=== PATIENT | male | born 1950 | race Caucasian/White ===

== ENCOUNTER 2022-02-12 17:27 | Emergency (ER) | payer MEDICARE, BC ==
[~2022-02-12] VITALS: Ht 182.9 cm; Wt 94.1 kg
[2022-02-12 18:57] LABS: BASOPHILS % (AUTO) 0.5 % (0-1); EOSINOPHILS # (AUTO) 0.2 X10'3 (0-0.9); EOSINOPHILS % (AUTO) 3.4 % (0-6); HEMATOCRIT 29.8 % (42.0-52.0); HEMOGLOBIN 10.3 g/dl (14.0-17.9); LYMPHOCYTES # (AUTO) 0.6 X10'3 (1.1-4.8); LYMPHOCYTES % (AUTO) 10.3 % (21-51); MEAN CORPUSCULAR HEMOGLOBIN 30.5 PG (27.0-31.0); MEAN CORPUSCULAR HGB CONC 34.7 g/dL (33.0-36.5); MEAN CORPUSCULAR VOLUME 88.1 FL (78-98); MEAN PLATELET VOLUME 7.2 FL (7.4-10.4); MONOCYTES # (AUTO) 0.6 X10'3 (0-0.9); MONOCYTES % (AUTO) 10.7 % (2-12); NEUTROPHILS # (AUTO) 4.4 X10'3 (1.8-7.7); NEUTROPHILS % (AUTO) 75.1 % (42-75); PLATELET COUNT 245 X10'3 (140-440); RED BLOOD COUNT 3.39 X10'6 (4.70-6.10); RED CELL DISTRIBUTION WIDTH 14.4 % (11.5-14.5); WHITE BLOOD COUNT 5.8 X10'3 (4.5-11.0)
[2022-02-12 19:21] LABS: ALANINE AMINOTRANSFERASE 59 U/L (12-78); ALBUMIN 3.3 G/DL (3.4-5.0); ALBUMIN/GLOBULIN RATIO 0.8 (1.1-1.5); ALKALINE PHOSPHATASE 185 IU/L (46-116); ANION GAP 13 (8-16); ASPARTATE AMINO TRANSFERASE 67 U/L (10-37); BILIRUBIN,TOTAL 0.2 MG/DL (0.1-1.0); BLOOD UREA NITROGEN 25 MG/DL (7-18); BUN/CREATININE RATIO 8.3 (5.4-32.0); CALCIUM 10.6 MG/DL (8.5-10.1); CHLORIDE 98 MMOL/L (99-107); CREATININE 3.03 MG/DL (0.60-1.10); GLUCOSE 82 MG/DL (70-104); POTASSIUM 3.5 MMOL/L (3.5-5.1); SODIUM 133 MMOL/L (135-145); TOTAL CARBON DIOXIDE 22.5 MMOL/L (24-32); TOTAL PROTEIN 7.4 G/DL (6.4-8.2); eGFR 21 ML/MIN
[2022-02-12] MEDS ORDERED: normal saline 1000ML IV soln IVB ONE ×2 (19:25→21:35)
[2022-02-12 20:19] LABS: CLARITY,URINE CLEAR (Clear); GLUCOSE, URINE NEGATIVE (Neg); KETONES,URINE NEGATIVE (Neg); LEUKOCYTE ESTERASE ,URINE NEGATIVE (Neg); NITRITES, URINE NEGATIVE (Neg); OCCULT BLOOD,URINE NEGATIVE (Neg); PH,URINE 5.5 (4.8-8.0); PROTEIN,URINE NEGATIVE (Neg); UROBILINOGEN,URINE 0.2 E.U/dL (0.2-1.0)
[2022-02-12 20:24] LABS: COLOR,URINE STRAW (Yellow); UA COLLECTION TYPE CLN CATCH MIDSTREAM
[2022-02-12] MEDS ORDERED: allopurinol 300 MG tablet PO SCH (21:35)
[2022-02-12 22:28] VITALS: BP 123/67
== END 2022-02-12 22:40 | disposition home or self-care (01) ==
LOC: ER 17:27
DX: N18.9 Chronic kidney disease, unspecified (principal); E79.0 Hyperuricemia without signs of inflammatory arthritis and tophaceous disease; Z85.72 Personal history of non-Hodgkin lymphomas
CPT/HCPCS: 36415; 80053; 81003; 84550; 85025; 96360; 99283; J7030; 93005

== ENCOUNTER 2022-02-14 06:44 | Day surgery (SDC) | payer MEDICARE, BC ==
[~2022-02-14] VITALS: Ht 182.9 cm; Wt 94.0 kg
[2022-02-14] VITALS (7 sets, daily range): BP systolic 119–146; BP diastolic 64–87
[2022-02-14] MEDS ORDERED: normal saline 1000ml 1,000 ML IV PRN (07:10)
[2022-02-14] MEDS ORDERED: GEMF600T89 PO (08:02)
[2022-02-14 08:03] LABS: BASOPHILS % (AUTO) 0.4 % (0-1); EOSINOPHILS # (AUTO) 0.1 X10'3 (0-0.9); EOSINOPHILS % (AUTO) 3.6 % (0-6); HEMATOCRIT 27.2 % (42.0-52.0); HEMOGLOBIN 9.2 g/dl (14.0-17.9); LYMPHOCYTES # (AUTO) 0.4 X10'3 (1.1-4.8); MEAN CORPUSCULAR HEMOGLOBIN 30.1 PG (27.0-31.0); MEAN CORPUSCULAR HGB CONC 33.7 g/dL (33.0-36.5); MEAN CORPUSCULAR VOLUME 89.3 FL (78-98); MONOCYTES # (AUTO) 0.5 X10'3 (0-0.9); MONOCYTES % (AUTO) 12.1 % (2-12); NEUTROPHILS # (AUTO) 2.9 X10'3 (1.8-7.7); NEUTROPHILS % (AUTO) 73.9 % (42-75); PLATELET COUNT 230 X10'3 (140-440); RED BLOOD COUNT 3.05 X10'6 (4.70-6.10); RED CELL DISTRIBUTION WIDTH 14.5 % (11.5-14.5); WHITE BLOOD COUNT 3.9 X10'3 (4.5-11.0)
[2022-02-14] MEDS ORDERED: LEVO100T9 PO (08:03)
[2022-02-14] MEDS ORDERED: CITA20TA28 PO (08:03)
[2022-02-14] MEDS ORDERED: SIMV-42 PO (08:03)
[2022-02-14] MEDS ORDERED: OLME20TA23 PO (08:05)
[2022-02-14] MEDS ORDERED: ALLO100T PO (08:05)
[2022-02-14] MEDS ORDERED: FLO0.4C PO (08:05)
[2022-02-14] MEDS ORDERED: ATI1T PO (08:05)
[2022-02-14 08:11] LABS: APTT 30 SECONDS (22-32)
[2022-02-14] MEDS ORDERED: levoFLOXACIN-Levaquin 500mg/D5 100 ML IV ONE (08:15)
[2022-02-14 08:25] LABS: ALBUMIN 3.1 G/DL (3.4-5.0); ANION GAP 14 (8-16); BLOOD UREA NITROGEN 38 MG/DL (7-18); BUN/CREATININE RATIO 11.6 (5.4-32.0); CALCIUM 9.8 MG/DL (8.5-10.1); CHLORIDE 106 MMOL/L (99-107); CREATININE 3.29 MG/DL (0.60-1.10); GLUCOSE 75 MG/DL (70-104); POTASSIUM 4.3 MMOL/L (3.5-5.1); SODIUM 139 MMOL/L (135-145); TOTAL CARBON DIOXIDE 19.2 MMOL/L (24-32); eGFR 19 ML/MIN
[2022-02-14] MEDS ORDERED: LIDOcaine 1%/PF 5ML 10 MG/ML VIAL ONE (09:26)
[2022-02-14] MEDS ORDERED: fentaNYL/PF 50MCG/1 ML 2ML syringe ONE ×2 (09:26→10:25)
[2022-02-14] MEDS ORDERED: iohexol 350MG/ML 100ml bottle IV ONE (09:26)
[2022-02-14] MEDS ORDERED: midazolam 1 mg/ML 2ml injection ONE ×2 (09:26→10:25)
[2022-02-14] MEDS ORDERED: diphenhydrAMINE 50 mg/ml inj ONE (10:06)
--- NOTE | 2022-02-14 13:00 | NUR ---
Dr. Quintero at bedside states pt can go home.
== END 2022-02-14 13:00 | disposition home or self-care (01) ==
LOC: SSTAY O 06:44
PROVIDERS: ATTEND Radiology Diagnostic Radiology
DX: N13.1 Hydronephrosis with ureteral stricture, not elsewhere classified (principal); Z79.01 Long term (current) use of anticoagulants; I10 Essential (primary) hypertension; E78.00 Pure hypercholesterolemia, unspecified; E03.9 Hypothyroidism, unspecified; Z79.899 Other long term (current) drug therapy; Z98.890 Other specified postprocedural states
CPT/HCPCS: 36415; 50432; 80048; 85025; 85610; 85730; 99152; 99153; C1729; C1769; J1200; J2250; J3010; J3490; J7030; Q9967; 76942; A4421; A4620; A6258

== ENCOUNTER 2022-03-08 14:01 | Day surgery (SDC) | payer MEDICARE, BC ==
[~2022-03-08] VITALS: Ht 182.9 cm; Wt 90.2 kg
[~2022-03-08 14:01] MED LIST: ALLO100T PO; ATI1T PO; CITA20TA28 PO; FLO0.4C PO; GEMF600T89 PO; LEVO100T9 PO; OLME20TA23 PO; SIMV-42 PO
[2022-03-08] MEDS ORDERED: levoFLOXACIN-Levaquin 500mg/D5 100 ML IV ONE (14:20)
[2022-03-08] MEDS ORDERED: normal saline 1000ml 1,000 ML IV PRN (14:20)
[2022-03-08 14:30] VITALS: BP 140/82
[2022-03-08] MEDS ORDERED: [UNRECOGNIZED DRUG - CODE] (14:40)
[2022-03-08 14:43] LABS: BASOPHILS % (AUTO) 0.3 % (0-1); EOSINOPHILS % (AUTO) 0.3 % (0-6); HEMATOCRIT 25.7 % (42.0-52.0); HEMOGLOBIN 8.8 g/dl (14.0-17.9); LYMPHOCYTES # (AUTO) 0.4 X10'3 (1.1-4.8); LYMPHOCYTES % (AUTO) 4.8 % (21-51); MEAN CORPUSCULAR HEMOGLOBIN 29.6 PG (27.0-31.0); MEAN CORPUSCULAR HGB CONC 34.1 g/dL (33.0-36.5); MEAN CORPUSCULAR VOLUME 86.8 FL (78-98); MEAN PLATELET VOLUME 7.2 FL (7.4-10.4); MONOCYTES # (AUTO) 0.7 X10'3 (0-0.9); MONOCYTES % (AUTO) 7.5 % (2-12); NEUTROPHILS # (AUTO) 7.6 X10'3 (1.8-7.7); NEUTROPHILS % (AUTO) 87.1 % (42-75); PLATELET COUNT 353 X10'3 (140-440); RED BLOOD COUNT 2.96 X10'6 (4.70-6.10); RED CELL DISTRIBUTION WIDTH 15.6 % (11.5-14.5); WHITE BLOOD COUNT 8.7 X10'3 (4.5-11.0)
[2022-03-08 14:55] LABS: APTT 31 SECONDS (22-32)
[2022-03-08 14:57] LABS: ALANINE AMINOTRANSFERASE 58 U/L (12-78); ALBUMIN 2.5 G/DL (3.4-5.0); ALBUMIN/GLOBULIN RATIO 0.6 (1.1-1.5); ALKALINE PHOSPHATASE 184 IU/L (46-116); ANION GAP 14 (8-16); ASPARTATE AMINO TRANSFERASE 64 U/L (10-37); BILIRUBIN,TOTAL 0.3 MG/DL (0.1-1.0); BLOOD UREA NITROGEN 27 MG/DL (7-18); BUN/CREATININE RATIO 8.1 (5.4-32.0); CALCIUM 10.1 MG/DL (8.5-10.1); CHLORIDE 103 MMOL/L (99-107); CREATININE 3.34 MG/DL (0.60-1.10); GLUCOSE 74 MG/DL (70-104); POTASSIUM 4.2 MMOL/L (3.5-5.1); SODIUM 136 MMOL/L (135-145); TOTAL CARBON DIOXIDE 19.4 MMOL/L (24-32); TOTAL PROTEIN 6.4 G/DL (6.4-8.2); eGFR 18 ML/MIN
[2022-03-08] MEDS ORDERED: midazolam 1 mg/ML 2ml injection ONE ×2 (15:17→15:56)
[2022-03-08] MEDS ORDERED: fentaNYL/PF 50MCG/1 ML 2ML syringe ONE ×2 (15:18→15:56)
[2022-03-08] MEDS ORDERED: iohexol 300mg/ml 100ml inj. ONE (15:18)
[2022-03-08] MEDS ORDERED: LIDOcaine 1% 30ml preserv. free vial ONE (15:18)
[2022-03-08 16:30] VITALS: BP 131/80
[2022-03-08 16:45] VITALS: BP 123/82
[2022-03-08 17:00] VITALS: BP 123/73
[2022-03-08 17:15] VITALS: BP 126/72
== END 2022-03-08 17:32 | disposition home or self-care (01) ==
LOC: SSTAY O 14:01
PROVIDERS: ATTEND Radiology Diagnostic Radiology
DX: T83.022A Displacement of nephrostomy catheter, initial encounter (principal); Z86.14 Personal history of Methicillin resistant Staphylococcus aureus infection; Z79.899 Other long term (current) drug therapy; Z79.01 Long term (current) use of anticoagulants; Y83.8 Other surgical procedures as the cause of abnormal reaction of the patient, or of later complication, without mention of misadventure at the time of the procedure; Z20.822 Contact with and (suspected) exposure to COVID-19
CPT/HCPCS: 36415; 50693; 80053; 85025; 85610; 85730; 87811; 99152; 99153; C1729; C1769; J2250; J3010; J3490; J7030; Q9967; A4421; A4620; A6258